=== PATIENT | male | born 2000 | race Caucasian/White ===

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

== ENCOUNTER 2018-03-09 12:25 | Emergency (ER) | payer OTHER ==
[~2018-03-09] VITALS: Ht 190.5 cm; Wt 72.6 kg
[~2018-03-09 12:25] MED LIST changes: +KENALOG 0.1%80 GM T; +PREDNISONE20 M1 PO
[2018-03-09 13:24] LABS: BASO # 0.1 10*3/uL (0.0-0.1); EOS # 0.4 10*3/uL (0.0-0.4); EOS % 6.3 % (1.0-4.0); HEMATOCRIT 45.2 % (42.0-52.0); HEMOGLOBIN 15.8 g/dl (14.0-18.0); LYMPH # 2.1 10*3/uL (1.3-4.4); LYMPH % 33.1 % (27.0-41.0); MEAN CELL VOLUME 88.8 fl (80.0-94.0); MEAN PLATELET VOLUME 9.9 fl (9.6-12.3); MONO # 0.9 10*3/uL (0.1-1.0); MONO % 13.6 % (3.0-9.0); NEUT # 2.9 10*3/uL (2.3-7.9); NEUT % 45.8 % (47.0-73.0); PLATELET COUNT AUTOMATED 280 10*3/uL (130-400); RED BLOOD COUNT 5.09 10*6/uL (4.50-5.90); RED CELL DISTRI WIDTH 11.5 % (0-14.5); WHITE BLOOD COUNT 6.3 10*3/uL (4.8-10.8)
[2018-03-09 13:39] LABS: ALBUMIN 4.1 gm/dl (3.1-4.5); ALKALINE PHOSPHATASE 92 U/L (45-117); BUN 11 mg/dl (7-24); CHLORIDE 105 mmol/L (98-107); CREATININE 1.06 mg/dL (0.70-1.30); LIPASE 108 U/L (73-393); POTASSIUM 4.2 mmol/L (3.5-5.1); SGOT/AST 29 IU/L (3-35); SGPT/ALT 49 U/L (12-78); SODIUM 139 mmol/L (136-145); TOTAL PROTEIN 7.3 gm/dL (6.4-8.2)
[2018-03-09 14:57] VITALS: BP 118/62
[2018-03-09 15:30] LABS: BILIRUBIN NEGATIVE (NEGATIVE); BLOOD 1+ (NEGATIVE); CLARITY CLEAR (CLEAR); COLOR YELLOW (YELLOW); GLUCOSE NEGATIVE (NEGATIVE); KETONE NEGATIVE (NEGATIVE); LEUKO ESTERASE TRACE (NEGATIVE); NITRITE NEGATIVE (NEGATIVE); UROBILINOGEN 0.2 E.U./dl (0.2-1.0)
[2018-03-09 15:38] LABS: BACTERIA TRACE; MUCOUS 2+
[2018-03-09 15:40] LABS: EPITHELIAL CELLS 0-2; RBC 21-30 rbc/hpf (0-2)
[2018-03-09] MEDS ORDERED: SEPTDS PO (15:47)
[2018-03-09] MEDS ORDERED: IBUPROFEN600 MG PO (15:47)
== END 2018-03-09 16:05 ==
LOC: ED 12:25
PROVIDERS: Physician Assistant
DX: N20.1 Calculus of ureter (principal); Z88.8 Allergy status to other drugs, medicaments and biological substances

== ENCOUNTER 2018-06-23 17:48 | Emergency (ER) | payer OTHER ==
[~2018-06-23] VITALS: Ht 187.9 cm; Wt 80.3 kg
[~2018-06-23 17:48] MED LIST changes: +IBUPROFEN600 MG PO; +SEPTDS PO
[2018-06-23 17:50] VITALS: BP 144/88
[2018-06-23] MEDS ORDERED: IBUPROFEN600 MG PO (18:56)
[2018-06-23] MEDS ORDERED: Tobrex Ophth S2.5 ML OPH (18:56)
[2018-06-23] MEDS ORDERED: NORCO 5-325 TA1 EACH PO (18:56)
== END 2018-06-23 19:04 | disposition home or self-care (01) ==
LOC: ED 17:48
DX: T15.02XA Foreign body in cornea, left eye, initial encounter (principal); Z88.8 Allergy status to other drugs, medicaments and biological substances; Z79.2 Long term (current) use of antibiotics; Z79.899 Other long term (current) drug therapy; X58.XXXA Exposure to other specified factors, initial encounter; Y93.89 Activity, other specified; Y92.89 Other specified places as the place of occurrence of the external cause; Y99.8 Other external cause status

== ENCOUNTER 2019-06-07 07:55 | Emergency (ER) | payer OTHER ==
[~2019-06-07] VITALS: Ht 187.9 cm; Wt 63.5 kg
[~2019-06-07 07:55] MED LIST changes: +NORCO 5-325 TA1 EACH PO; +Tobrex Ophth S2.5 ML OPH
[2019-06-07 07:56] VITALS: BP 121/83
[2019-06-07 10:54] LABS: BILIRUBIN 1+ (NEGATIVE); BLOOD 3+ (NEGATIVE); CLARITY CLOUDY (CLEAR); COLOR YELLOW (YELLOW); GLUCOSE NEGATIVE (NEGATIVE); KETONE NEGATIVE (NEGATIVE); LEUKO ESTERASE TRACE (NEGATIVE); NITRITE NEGATIVE (NEGATIVE); SPECIFIC GRAVITY 1.025 (1.005-1.030); UROBILINOGEN 0.2 E.U./dl (0.2-1.0)
[2019-06-07 11:16] LABS: BACTERIA 2+; MUCOUS 2+; RBC TNTC rbc/hpf (0-2)
[2019-06-07] MEDS ORDERED: CIPRO500 MG PO (13:13)
== END 2019-06-07 13:32 | disposition home or self-care (01) ==
LOC: ED 07:55
PROVIDERS: Emergency Medicine
DX: N13.2 Hydronephrosis with renal and ureteral calculous obstruction (principal); N39.0 Urinary tract infection, site not specified; Z88.8 Allergy status to other drugs, medicaments and biological substances

== ENCOUNTER 2022-02-26 08:26 | Emergency (ER) | payer OTHER ==
[~2022-02-26] VITALS: Wt 77.1 kg
[~2022-02-26 08:26] MED LIST changes: +CIPRO500 MG PO
[2022-02-26 08:27] VITALS: BP 142/99
[2022-02-26 09:54] LABS: BASO # 0.1 10*3/uL (0.0-0.1); BASO % 0.6 % (0.0-1.0); EOS # 0.3 10*3/uL (0.0-0.4); EOS % 3.5 % (1.0-4.0); HEMATOCRIT 48.2 % (42.0-52.0); LYMPH # 1.8 10*3/uL (1.3-4.4); LYMPH % 21.7 % (27.0-41.0); MEAN CELL VOLUME 91.1 fl (80.0-94.0); MEAN CORPUSCULAR HGB 31.8 pg (27.0-31.0); MEAN CORPUSCULAR HGB CONC 34.9 g/dl (33.0-37.0); MEAN PLATELET VOLUME 9.9 fl (9.6-12.3); MONO # 0.7 10*3/uL (0.1-1.0); MONO % 9.1 % (3.0-9.0); NEUT # 5.2 10*3/uL (2.3-7.9); NEUT % 64.9 % (47.0-73.0); PLATELET COUNT AUTOMATED 238 10*3/uL (130-400); RED BLOOD COUNT 5.29 10*6/uL (4.50-5.90); RED CELL DISTRI WIDTH 11.6 % (0-14.5); WHITE BLOOD COUNT 8.1 10*3/uL (4.8-10.8)
[2022-02-26 10:10] LABS: ALKALINE PHOSPHATASE 98 U/L (45-117); BUN 9 mg/dl (7-24); CHLORIDE 109 mmol/L (98-107); CREATININE 0.91 mg/dL (0.70-1.30); POTASSIUM 4.5 mmol/L (3.5-5.1); SGOT/AST 30 IU/L (3-35); SGPT/ALT 49 U/L (12-78); SODIUM 140 mmol/L (136-145); TOTAL PROTEIN 7.5 gm/dL (6.4-8.2)
[2022-02-26 11:35] LABS: BILIRUBIN Negative (Negative); BLOOD Negative (Negative); CLARITY Clear (Clear); COLOR Yellow (Yellow); GLUCOSE Negative (Negative); KETONE Negative (Negative); LEUKO ESTERASE Negative (Negative); NITRITE Negative (Negative)
[2022-02-26 11:42] LABS: BACTERIA 1+; EPITHELIAL CELLS 0-2; RBC 0-2 rbc/hpf (0-2); WBC 0-2 wbc/hpf (0-5)
[2022-02-26] MEDS ORDERED: LIDODERM1 EACH T (11:53)
[2022-02-26] MEDS ORDERED: PREDNISONE20 M1 PO (11:53)
[2022-02-26] MEDS ORDERED: RELAFEN500 M1 PO (11:53)
[2022-02-26] MEDS ORDERED: NEURONTIN300 MG PO (11:53)
[2022-02-26] MEDS ORDERED: CYCLOBENZAPRINE10 MG PO (11:53)
== END 2022-02-26 12:05 | disposition home or self-care (01) ==
LOC: ED 08:26
PROVIDERS: Family Medicine
DX: G58.8 Other specified mononeuropathies (principal); Z88.8 Allergy status to other drugs, medicaments and biological substances